=== PATIENT | female | born 1995 | race Caucasian/White ===

== ENCOUNTER 2020-11-19 16:58 | Emergency (ER) | payer MEDICAID ==
[~2020-11-19] VITALS: Ht 154.9 cm; Wt 54.4 kg
[2020-11-19 16:58] VITALS: BP 132/72
--- NOTE | 2020-11-19 16:58 | NUR ---
CARE at bedside with [place] [employer], patient assisted onto bed 07; SI precautions in place.
--- NOTE | 2020-11-19 17:00 | NUR ---
[place] [employer] Officer Lona at bedside with 5150 hold. Copy provided.
--- NOTE | 2020-11-19 17:00 | NUR ---
25 y/o F BIBA from outside [facility] c/o suicidal ideations. Per EMS, patient having thoughts of killing with hx of cutting herself; reported taking marijuana, meth and 1 Red Bull. Patient was en route to [place] by PD when Officer noticed she was diaphoretic; PD contacted 911 while en route and diverted to [place] for treatment. EMS states pt denies pain; presented GCS 15 A&Ox4. Upon assessment, patient denies suicidal ideations at this time; reports 10/10 sternal chest pressure, non-rdaiating. Pt also states headache. Pt noted with old cut rich to left forearm. SI precautions in place. Pt in gown; bed locked in lowest position, side rails x 2 for pt safety. PMH: pituitary tumor, drug abuse Meds: Benztropine NKA
--- NOTE | 2020-11-19 17:11 | NUR ---
lab at bedside
--- NOTE | 2020-11-19 17:11 | NUR ---
Patient unable to void for sample. Water cup given.
[2020-11-19] MEDS ORDERED: NACL 0.9% 1,000 ML IV ONE (17:15)
--- NOTE | 2020-11-19 17:25 | NUR ---
Patricia harris and carolin collected, walked to lab and handed to CPT. Angeline
--- NOTE | 2020-11-19 17:29 | NUR ---
Dr. Patel is evaluating patient at bedside.
--- NOTE | 2020-11-19 17:35 | NUR ---
EMT at bedside for EKG.
[2020-11-19 17:36] LABS: BASOPHILS # (AUTO) 0.1 K/uL (0.00-0.22); BASOPHILS % (AUTO) 0.4 % (0.0-2.0); EOSINOPHILS # (AUTO) 0.1 K/uL (0-0.4); EOSINOPHILS % (AUTO) 1.1 % (0.0-4.0); HEMATOCRIT 41.2 % (36-48); HEMOGLOBIN 13.8 g/dL (12.0-16.0); LYMPHOCYTES % (AUTO) 16.2 % (20.5-51.1); MEAN CORPUSCULAR HEMOGLOBIN 31 pg (27-31); MEAN CORPUSCULAR HGB CONC 34 g/dL (33-37); MEAN CORPUSCULAR VOLUME 91.5 fL (80-94); MONOCYTES # (AUTO) 0.4 K/uL (0.8-1.0); MONOCYTES % (AUTO) 3.4 % (1.7-9.3); NEUTROPHILS # (AUTO) 9.9 K/uL (1.8-7.7); NEUTROPHILS % (AUTO) 78.9 % (42.2-75.2); PLATELET COUNT (AUTO) 325 K/uL (140-450); RED CELL DISTRIBUTION WIDTH 12.3 % (11.6-13.7); WHITE BLOOD COUNT (AUTO) 12.6 K/uL (4.8-10.8)
--- NOTE | 2020-11-19 17:51 | NUR ---
TELEPSYCH CONSULT REQUESTED AT THIS TIME.
--- NOTE | 2020-11-19 17:51 | NUR ---
2 water cups provided; patient states unable to void.
--- NOTE | 2020-11-19 17:53 | NUR ---
Dr. Patel made aware of no urine sample. Advised to wait and encourage pt to go. Patient refusing to provide urine at this time and refuses a straight cath.
[2020-11-19 18:01] LABS: ALBUMIN 4.4 g/dL (3.4-5.0); ANION GAP 13.4 (8-16); ASPARTATE AMINOTRANSFERASE 20 U/L (15-37); CARBON DIOXIDE 26.1 mmol/L (21-32); CHLORIDE 107 mmol/L (98-107); CREATININE 1.2 mg/dL (0.6-1.3); GFR ARICAN-AMERICAN 72 mL/min (>90); GLUCOSE 81 mg/dL (74-106); POTASSIUM 4.5 mmol/L (3.5-5.1); SODIUM SERUM 142 mmol/L (136-145); TOTAL BILIRUBIN 0.2 mg/dL (0.0-1.0); UREA NITROGEN, BLOOD 19 mg/dL (7-18)
[2020-11-19 18:02] LABS: SALICYLATE < 2.8 mg/dL (2.8-20.0)
[2020-11-19 18:03] LABS: ACETAMINOPHEN < 0.5 ug/ml (10-30)
--- NOTE | 2020-11-19 18:29 | NUR ---
Dr. Santana evaluating patient at bedside.
--- NOTE | 2020-11-19 18:35 | NUR ---
Pt with both eyes closed in position of comfort. IVF continued. Resiprations even/unlabored. Bed locked in lowest position, side rails x 1.
--- NOTE | 2020-11-19 19:12 | NUR ---
CALLED TELEPSYCH TO CANCEL PER DR. MELVIN. SOCTELEMED AWARE AND CONSULT CANCELLED
--- NOTE | 2020-11-19 19:16 | NUR ---
Report and transfer of care endorsed to LAY Jean Baptiste.
--- NOTE | 2020-11-19 19:30 | NUR ---
PT. AWAKE AND ALERT WITH EYES CLOSED. VOICES NO COMPLAINTS AT THIS TIME. NO DISTRESS NOTED
--- NOTE | 2020-11-20 00:43 | NUR ---
PT IN POSITION, RESTING WITH EYES CLOSED. VOICES NO COMPLAINTS AT THIS TIME.
--- NOTE | 2020-11-20 04:00 | NUR ---
PT. LAYING COMFORTABLY IN POSITION, RESTING WITH EYES CLOSED. NO DISTRESS NOTED.
--- NOTE | 2020-11-20 05:10 | NUR ---
PT. IN SUPINE POSITION, RESTING WITH EYES CLOSED. HR EVEN AND REGULAR. BREATHING UNLABORED. NO DISTRESS NOTED.
--- NOTE | 2020-11-20 07:29 | NUR ---
REPORT GIVEN TO LAY WILLAMS. TRANSFER OF CARE AT THIS TIME.
--- NOTE | 2020-11-20 08:00 | NUR ---
PT RESTING WITH EYES CLOSEDW, BREATHING EVEN AND UNLABORED. NO DISTRESS NOTED. WILL CONTINUE TO MONITOR.
--- NOTE | 2020-11-20 10:01 | NUR ---
PT RESTING WITH EYES CLOSED, BREATHING EVEN AND UNLABORED. NO DISTRESS NOTED. WILL CONTINUE TO MONITOR.
--- NOTE | 2020-11-20 12:00 | NUR ---
PT RESTING WITH EYES CLOSED, BREATHING EVEN AND UNLABORED. NO DISTRESS NOTED. WILL CONTINUE TO MONITOR.
--- NOTE | 2020-11-20 12:00 | NUR ---
Note avinash in ED - 11/20/20 at 1233 by MEDKRISTOFER PT EATING LUNCH AT THIS TIME. ALERT AND AWAKE, BREATHING EVEN AND UNLABORED. NO DISTRESS NOTED. WILL CONTINUE TO MONITOR.
[2020-11-20 15:56] LABS: BARBITURATE, URINE NEGATIVE ng/ml (NEG <=200)
[2020-11-20 15:57] LABS: BENZODIAZEPINE, URINE NEGATIVE ng/mL (NEG <=200); CANNABINOID, URINE POSITIVE ng/mL (NEG <=50); COCAINE, URINE NEGATIVE ng/mL (NEG <=300); OPIATE, URINE NEGATIVE ng/mL (NEG <=2000); PHENCYCLIDINE SCREEN,URINE NEGATIVE ng/mL (NEG <=25)
--- NOTE | 2020-11-20 16:00 | NUR ---
PT EATING LUNCH AT THIS TIME. PT ALERT AND AWAKE, BREATHING EVEN AND UNLABORED. NO DISTRESS NOTED. WILL CONTINUE TO MONITOR.
[2020-11-20 16:08] LABS: APPEARANCE,URINE CLOUDY (CLEAR); BILIRUBIN,URINE NEGATIVE (NEGATIVE); BLOOD, URINE 3+ (NEGATIVE); COLOR,URINE RED (YELLOW); LEUKOCYTE ESTERASE ,URINE 2+ (NEGATIVE); NITRITE, URINE NEGATIVE (NEGATIVE); UGLUCOSE NEGATIVE (NEGATIVE)
[2020-11-20 16:09] LABS: WBC,URINE TOO MANY TO COUNT /HPF (0-5)
--- NOTE | 2020-11-20 19:16 | NUR ---
report received from antoine reinoso. transfer of care at this time.
--- NOTE | 2020-11-20 19:16 | NUR ---
REPORT GIVEN TO BRENDA CHUN, TRANSFER OF CARE AT THIS TIME
--- NOTE | 2020-11-20 19:25 | NUR ---
pt is sleeping. Equal rise and fall of chest wall,opens eyes to sound. bed locked in lowest position, side rails x1.
--- NOTE | 2020-11-20 20:57 | NUR ---
pt is sleeping. Equal rise and fall of chest wall,opens eyes to sound. bed locked in lowest position, side rails x1.
--- NOTE | 2020-11-20 21:24 | NUR ---
WOKE UP PT FOR PSYCH CONSULT.
[2020-11-20 22:20] VITALS: BP 110/64
--- NOTE | 2020-11-20 22:20 | NUR ---
Patient discharged with v/s stable. Written and verbal after care instructions given and explained. Patient verbalized understanding. Ambulatory with steady gait. All questions addressed prior to discharge. Advised to follow up with PMD.
== END 2020-11-20 22:20 | disposition home or self-care (01) ==
LOC: EDBD 16:58 → MED 16:58
DX: R45.851 Suicidal ideations (principal); R00.0 Tachycardia, unspecified; F17.210 Nicotine dependence, cigarettes, uncomplicated; Z20.822 Contact with and (suspected) exposure to COVID-19
CPT/HCPCS: 80053; 80305; 81001; 84703; 85025; 87086; 87426; 93005; 96360; 99285; G0480; G0482; J7030; U0003